=== PATIENT | male | born 1950 | race Hispanic/Latino ===

== ENCOUNTER 2020-02-29 14:51 | Inpatient (IN) | payer MEDICARE ==
[~2020-02-29] VITALS: Ht 167.6 cm; Wt 59.9 kg
[2020-02-29 15:18] LABS: BASOPHILS % 0.3 % (0.0-1.0); EOSINOPHILS # (AUTO) 0.1 (0.0-0.4); EOSINOPHILS % 1.4 % (0.0-6.0); HEMATOCRIT 39.3 % (38.2-49.6); HEMOGLOBIN 12.9 g/dL (14.0-18.0); LYMPHOCYTES # (AUTO) 1.9 (1.0-3.2); LYMPHOCYTES % 29.7 % (18.0-39.1); MEAN CORPUSCULAR HEMOGLOBIN 28.3 pg (28-32); MEAN CORPUSCULAR HGB CONC 32.8 g/dL (31-35); MEAN CORPUSCULAR VOLUME 86.2 fL (81-99); MONOCYTES # (AUTO) 0.6 (0.2-0.8); MONOCYTES % 9.1 % (4.4-11.3); NEUTROPHILS # (AUTO) 3.7 (2.1-6.9); NEUTROPHILS % 58.7 % (38.7-80.0); PLATELET COUNT 191 x10e3/uL (140-360); RED BLOOD COUNT 4.56 x10e6/uL (4.3-5.7); RED CELL DISTRIBUTION WIDTH 13.3 % (11.7-14.4)
[2020-02-29 15:21] LABS: INR 0.94; PROTHROMBIN TIME 13.1 seconds (11.9-14.5)
[2020-02-29 15:22] LABS: PARTIAL THROMBOPLASTIN TIME 28.6 seconds (23.8-35.5)
[2020-02-29] MEDS ORDERED: FENTANYL CITRATE/PF 100MCG/2 ML INJ IV ONE (15:30)
[2020-02-29 15:31] LABS: ALANINE AMINOTRANSFERASE 22 IU/L (0-55); ALBUMIN 3.8 g/dL (3.5-5.0); ALBUMIN/GLOBULIN RATIO 1.2 (0.8-2.0); ALKALINE PHOSPHATASE 103 IU/L (40-150); ANION GAP 11.8 mmol/L (8-16); BLOOD UREA NITROGEN 16 mg/dL (7-26); BUN/CREATININE RATIO 16 (6-25); CALCIUM 8.4 mg/dL (8.4-10.2); CARBON DIOXIDE 22 mmol/L (22-29); CHLORIDE 110 mmol/L (98-107); CREATINE KINASE 220 IU/L (30-200); CREATININE, SERUM 0.98 mg/dL (0.72-1.25); EST GLOMERULAR FILTRATION RATE > 60 ML/MIN (60-); GLUCOSE 124 mg/dL (74-118); POTASSIUM 3.8 mmol/L (3.5-5.1); SODIUM 140 mmol/L (136-145)
--- NOTE | 2020-02-29 15:41 | Diagnostic Imaging Report ---
History: Trauma, fall Comparison studies: None Technique: Axial images were obtained through the cervical region. Coronal and sagittal images reconstructed from the axial data. Dose modulation, iterative reconstruction, and/or weight based adjustment of the mA/kV was utilized to reduce the radiation dose to as low as reasonably achievable. Intravenous contrast: None Findings: Atlantoaxial articulation: Intact. Alignment: Straightened cervical curvature may be positional. No subluxations. Cervicomedullary junction: No abnormalities. The foramen magnum is patent. Soft tissues: No gross acute abnormalities. Mild calcified atherosclerosis present at the right subclavian artery origin, in the carotid bulbs and in the carotid siphons. Vertebrae: No fracture or infection. Nonaggressive-appearing lucent focus in the C2 vertebral body, possibly hemangioma. Degenerative changes: Bridging anterior osteophytes from C2 through C6 indent the prevertebral soft tissues. These findings may reflect changes of diffuse idiopathic skeletal hyperostosis (DISH) spectrum. Mildly degenerated disks from C2 to C7. 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 No significant degenerative canal stenosis. Moderate foraminal stenosis on the left at C5-C6 due to uncovertebral facet arthrosis. Incidental findings: Chronic inflammatory changes in the middle ear mastoid cavities with likely prior tympanomastoidectomies bilaterally. Can correlate with surgical history. IMPRESSION: 1. No cervical spine fracture or subluxation. 2. Degenerative changes as described. 3. Ligament, spinal cord and or vascular abnormalities cannot be excluded on the basis of this examination Signed by: Dr. Geronimo Rubin M.D. on 02/29/2020 3:38 PM
--- NOTE | 2020-02-29 16:01 | Diagnostic Imaging Report ---
Exam: Head CT and orbits CT without contrast History: Trauma, fall Comparison studies: None Technique: Axial images were obtained from the skull base to the vertex and through the orbits. Coronal and sagittal images reconstructed from the axial data. Dose modulation, iterative reconstruction, and/or weight based adjustment of the mA/kV was utilized to reduce the radiation dose to as low as reasonably achievable. Findings: Soft tissues: Left supraorbital soft tissues extends to the superior left preseptal soft tissues. No retained evident foreign body. Bones: No fractures. No destructive lytic or blastic lesions. Nonaggressive to 3 mm sclerotic lesion in the right parietal calvarium and few scattered nonaggressive-appearing lucent foci within the calvarium are nonspecific Brain sulci: Appropriate for age. Ventricles: Normal in size and configuration. No hydrocephalus. Extra-axial spaces: No masses, no fluid collection. Parenchyma: No mass, acute hemorrhage or acute or chronic cortical insults. Sellar/suprasellar region: No abnormalities. Craniocervical junction: Patent foramen magnum. No Chiari one malformation. Included paranasal sinuses: Mild nonspecific mucosal thickening in the bilateral ethmoids as well as mild mucosal thickening or small secretions in the left sphenoid sinus. Middle ear mastoid cavities: Chronic inflammatory changes in the middle ear mastoid cavities with likely prior tympanomastoidectomies bilaterally. Can correlate with surgical history. Incidental findings: Atherosclerotic calcifications in the carotid siphons. Orbits: Soft tissues: Left supraorbital hematoma extends to the left preseptal soft tissues. No retained hyperdense foreign body. Bones: No acute fractures. Chronic left orbital blowout fracture with depressed fractures along the left orbital floor and left lamina papyracea. The right lamina papyracea is also chronically fractured or dehiscent. Chronic nasal bone fractures and nondisplaced left-sided zygomatic arch fracture also present. Globes: Intact. The anterior and posterior chambers are clear. Bilateral intraocular lens replacements are present. Optic nerves: Normal in size and symmetric. Extraocular muscles: Normal in size and symmetric. No extraocular muscle herniation. Intraconal abnormalities: None. Superior ophthalmic veins: Normal in size and symmetric. Cavernous sinuses: Grossly symmetric. Pituitary stalk: At midline. Optic chiasm: Grossly unremarkable. IMPRESSION: Brain and orbits CTs: 1. Left supraorbital/periorbital soft tissue hematoma without underlying fracture. 2. No retained hyperdense foreign body, acute intracranial abnormalities or evidence of globe injury. Signed by: Dr. Geronimo Rubin M.D. on 02/29/2020 3:57 PM
--- NOTE | 2020-02-29 16:06 | Diagnostic Imaging Report ---
CT of the pelvis and left hip History: Fall, pain Comparison: None. Technique: Multidetector CT scanning of the pelvis was performed from the iliac crest through the pubic symphysis. Images were reformatted in coronal and sagittal planes. Additional reformats of the left hip were also obtained in multiple planes. DOSE REDUCTION: The examination was performed according to departmental dose-optimization program which includes automated exposure control, adjustment of the mA and/or kV according to patient size and/or use of iterative reconstruction technique. Discussion: The visualized portions of the large and small bowel are unremarkable. The urinary bladder is within normal limits. There is no evidence of free intraperitoneal air or ascites. There is a minimally displaced fracture of the left inferior pubic ramus which is best appreciated on pelvis CT axial image 41/55. There is a nondisplaced displaced anterior column and medial wall acetabular fracture which is best appreciated on left hip axial reformats images 47 through 72 and sagittal images 56/80 and 60/80 The bilateral proximal femurs are intact. IMPRESSION: 1. Minimally displaced inferior left pubic ramus fracture. 2. Nondisplaced anterior column and medial wall left acetabular fractures. 3. The bilateral proximal femurs are intact. Signed by: Turman Cross MD on 02/29/2020 4:02 PM
[2020-02-29] MEDS ORDERED: MORPHINE SULFATE 2 MG/ML SYR 1ML IV PRN (17:00)
--- OUTSIDE RECORDS SUMMARY | 2020-02-29 17:17 | XMS REPORT ---
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 Allergies, Adverse Reactions, Alerts This patient has no known allergies or adverse reactions. Medications This patient has no known medications. Encounters Start Date/Time End Date/Time Encounter Type Admission Type Attending Clinicians Care Facility Care Department Encounter ID 2017-04-10 14:46:00 2017-04-10 14:46:00 Outpatient [facility] [id number] Results Test Description Test Time Test Comments Text Results Atomic Results Result Comments CT PELVIS WO 2020-02-29 15:46:00 [place] [id number] Patient Name: ASHLEY MACE MR #: [id number] : 1950 Age/Sex: 69/M Req #: [id number] Adm Physician: Ordered by: CHERY VELAZQUEZ MD Report #: [id number] Location: ER Room/Bed: Procedure: [id number] CT/CT PELVIS WO Exam Date: 02/29/20 Exam Time: 1500 REPORT STATUS: Signed CT of the pelvis and left hip History: Fall, pain C omparison: None. Technique: Multidetector CT scanning of the pelvis was performed from the iliac crest through the pubic symphysis. Images were reformatted in coronal and sagittal planes. Additional reformats of the left hip were also obtained in multiple planes. DOSE REDUCTION: The examination was performed according to departmental dose-optimization program which includes automated exposure control, adjustment of the mA and/or kV according to patient size and/or use of iterative reconstruction technique. Discussion: The visualized portions of the large and small bowel are unremarkable. The urinary bladder is within normal limits. There is no evidence of free intraperitoneal air or ascites. There is a minimally displaced fracture of the left inferior pubic ramus which is best appreciated on pelvis CT axial image 41/55. There is a nondisplaced displaced anterior column and medial wall acetabular fracture which is best appreciated on left hip axial reformats images 47 through 72 and sagittal images 56/80 and 60/80 The bilateral proximal femurs are intact. IMPRESSION: 1. Minimally displaced inferior left pubic ramus fracture. 2. Nondisplaced anterior column and medial wall left acetabular fractures. 3. The bilateral proximal femurs are intact. Signed by: Truman Clark MD on 02/29/2020 4:02 PM Dictated By: TRUMAN CLARK MD 160 Transcribed By: DAVID on 02/29/20 160 COPY TO: CHERY VELAZQUEZ MD CT HIP LEFT WO 2020-02-29 15:46:00 [place] [id number] Patient Name: ASHLEY MACE MR #: [id number] : 1950 Age/Sex: 69/M Req #: [id number] Adm Physician: Ordered by: CHERY VELAZQUEZ MD Report #: [id number] Location: ER Room/Bed: Procedure: [id number] CT/CT HIP LEFT WO Exam Date: 02/29/20 Exam Time: 1500 REPORT STATUS: Signed CT of the pelvis and left hip History: Fall, pain C omparison: None. Technique: Multidetector CT scanning of the pelvis was performed from the iliac crest through the pubic symphysis. Images were reformatted in coronal and sagittal planes. Additional reformats of the left hip were also obtained in multiple planes. DOSE REDUCTION: The examination was performed according to departmental dose-optimization program which includes automated exposure control, adjustment of the mA and/or kV according to patient size and/or use of iterative reconstruction technique. Discussion: The visualized portions of the large and small bowel are unremarkable. The urinary bladder is within normal limits. There is no evidence of free intraperitoneal air or ascites. There is a minimally displaced fracture of the left inferior pubic ramus which is best appreciated on pelvis CT axial im age 41/55. There is a nondisplaced displaced anterior column and medial wall acetabular fracture which is best appreciated on left hip axial reformats images 47 through 72 and sagittal images 56/80 and 60/80 The bilateral proximal femurs are intact. IMPRESSION: 1. Minimally displaced inferior left pubic ramus fracture. 2. Nondisplaced anterior column and medial wall left acetabular fractures. 3. The bilateral proximal femurs are intact. Signed by: Truman Clark MD on 02/29/2020 4:02 PM Dictated By: TRUMAN CLARK MD 1602 Transcribed By: DAVID on 02/29/20 1602 COPY TO: CHERY VELAZQUEZ MD CT ORBIT/SELLA/PF WO 2020-02-29 15:39:00 [place] [id number] Patient Name: ASHLEY MACE MR #: [id number] : 1950 Age/Sex: 69/M Req #: [id number] Adm Physician: Ordered by: JADEN TOVAR CLINICAL RECRUITER Report #: [id number] Location: ER Room/Bed: Procedure: [id number] CT/CT ORBIT/SELLA/PF WO Exam Date: 02/29/20 Exam Time: 1500 REPORT STATUS: Signed Exam: Head CT and orbits CT without contrast History: Trauma, fall Comparison studies: None Technique: Axial images were obtained from the skull base to the vertex and through the orbits. Coronal and sagittal images reconstructed from the axial data. Dose modulation, iterative reconstruction, and/or weight based adjustment of the mA/kV was utilized to reduce the radiation dose to as low as reasonably achievable. Findings: Soft tissues: Left supraorbital soft tissues extends to the superior left preseptal soft tissues. No retained evident foreign body. Bones: No fractures. No destructive lytic or blastic lesions. Nonaggressive to 3 mm sclerotic lesion in the right parietal calvarium and few scattered nonaggressive-appearing lucent foci within the calvarium are nonspecific Brain sulci: Appropriate for age. Ventricles: Normal in size and configuration. No hydrocephalus. Extra-axial spaces: No masses, no fluid collection. Parenchyma: No mass, acute hemorrhage or acute or chronic cortical insults. Sellar/suprasellar region: No abnormalities. Craniocervical junction: Patent foramen magnum. No Chiari one malformation. Included paranasal sinuses: Mild nonspecific mucosal thickening in the bilateral ethmoids as well as mild mucosal thickening or small secretions in the left sphenoid sinus. Middle ear mastoid cavities: Chronic inflammatory changes in the middle ear mastoid cavities with likely prior tympanomastoidectomies bilaterally. Can correlate with surgical history. Incidental findings: Atherosclerotic calcifications in the carotid siphons. Orbits: Soft tissues: Left supraorbital hematoma extends to the left preseptal soft tissues. No retained hyperdense foreign body. Bones: No acute fractures. Chronic left orbital blowout fracture with depressed fractures along the left orbital floor and left lamina papyracea. The right lamina papyracea is also chronically fractured or dehiscent. Chronic nasal bone fractures and nondisplaced left-sided zygomatic arch fracture also present. Globes: Intact. The anterior and posterior chambers are clear. Bilateral intraocular lens replacements are present. Optic nerves: Normal in size and symmetric. Extraocular muscles: Normal in size and symmetric. No extraocular muscle herniation. Intraconal abnormalities: None. Superior ophthalmic veins: Normal in size and symmetric. Cavernous sinuses: Grossly symmetric. Pituitary stalk: At midline. Optic chiasm: Grossly unremarkable. IMPRESSION: Brain and orbits CTs: 1. Left supraorbital/periorbital soft tissue hematoma without underlying fracture. 2. No retained hyperdense foreign body, acute intracranial abnormalities or evidence of globe injury. Signed by: Dr. Pb Rubin M.D. on 02/29/2020 3:57 PM Dictated By: PB RUBIN MD 56 Transcribed By: DAVID on 02/29/201556 COPY TO: JADEN TOVAR CLINICAL RECRUITER CT BRAIN WO 2020-02-29 15:39:00 [place] [address] Patient Name: ASHLEY MACE MR #: [id number] : 1950 Age/Sex: 69/M Req #: [id number] Adm Physician: Ordered by: JADEN TOVAR NP Report #: [id number] Location: ER Room/Bed: Procedure: [id number] CT/CT BRAIN WO Exam Date: 02/29/20 Exam Time: 1500 REPORT STATUS: Signed Exam: Head CT and orbits CT without contrast History: Traum a, fall Comparison studies: None Technique: Axial images were obtained from the skull base to the vertex and through the orbits. Coronal and sagittal images reconstructed from the axial data. Dose modulation, iterative reconstruction, and/or weight based adjustment of the mA/kV was utilized to reduce the radiation dose to as low as reasonably achievable. Findings: Soft tissues: Left supraorbital soft tissues extends to the superior left preseptal soft tissues. No retained evident foreign body. Bones: No fractures. No destructive lytic or blastic lesions. Nonaggressive to 3 mm sclerotic lesion in the right parietal calvarium and few scattered nonaggressive-appearing lucent foci within the calvarium are nonspecific Brain sulci: Appropriate for age. Ventricles: Normal in size and configuration. No hydrocephalus. Extra-axial spaces: No masses, no fluid collection. Parenchyma: No mass, acute hemorrhage or acute or chronic cortical insults. Sellar/suprasellar region: No abnormalities. Craniocervical junction: Patent foramen magnum. No Chiari one malformation. Included paranasal sinuses: Mild nonspecific mucosal thickening in the bilateral ethmoids as well as mild mucosal thickening or small secretions in the left sphenoid sinus. Middle ear mastoid cavities: Chronic inflammatory changes in the middle ear mastoid cavities with likely prior tympanomastoidectomies bilaterally. Can correlate with surgical history. Incidental findings: Atherosclerotic calcifications in the carotid siphons. Orbits: Soft tissues: Left supraorbital hematoma extends to the left preseptal soft tissues. No retained hyperdense foreign body. Bones: No acute fractures. Chronic left orbital blowout fracture with depressed fractures along the left orbital floor and left lamina papyracea. The right lamina papyracea is also chronically fractured or dehiscent. Chronic nasal bone fractures and nondisplaced left-sided zygomatic arch fracture also present. Globes: Intact. The anterior and posterior chambers are clear. Bilateral intraocular lens replacements are present. Optic nerves: Normal in size and symmetric. Extraocular muscles: Normal in size and symmetric. No extraocular muscle herniation. Intraconal abnormalities: None. Superior ophthalmic veins: Normal in size and symmetric. Cavernous sinuses: Grossly symmetric. Pituitary stalk: At midline. Optic chiasm: Grossly unremarkable. IMPRESSION: Brain and orbits CTs: 1. Left supraorbital/periorbital soft tissue hematoma without underlying fracture. 2. No retained hyperdense foreign body, acute intracranial abnormalities or evidence of globe injury. Signed by: Dr. Pb Rubin M.D. on 02/29/2020 3:57 PM Dictated By: PB RUBIN MD 56 Transcribed By: DAVID on 02/29/201556 COPY TO: JADEN TOVAR NP CT CERVICAL SPINE WO 2020-02-29 15:26:00 [place] [address] Patient Name: ASHLEY MACE MR #: [id number] : 1950 Age/Sex: 69/M Req #: [id number] Adm Physician: Ordered by: JADEN TOVAR NP Report #: [id number] Location: ER Room/Bed: Procedure: [id number] CT/CT CERVICAL SPINE WO Exam Date: 02/29/20 Exam Time: 1500 REPORT STATUS: Signed History: Trauma, fall Comparison studies: None Technique: Axial images were obtained through the cervical region. Coronal and sagittal images reconstructed from the axial data. Dose modulation, iterative reconstruction, and/or weight based adjustment of the mA/kV was utilized to reduce the radiation dose to as low as reasonably achievable. Intravenous contrast: None Findings: Atlantoaxial articulation: Intact. Alignment: Straightened cervical curvature may be positional. No subluxations. Cervicomedullary junction: No abnormalities. The foramen magnum is patent. Soft tissues: No gross acute abnormalities. Mild calcified atherosclerosis present at the right subclavian artery origin, in the carotid bulbs and in the carotid siphons. Vertebrae: No fracture or infection. Nonaggressive-appearing lucent focus in the C2 vertebral body, possibly hemangioma. Degenerative changes: Bridging anterior osteophytes from C2 through C6 indent the prevertebral soft tissues. These findings may reflect changes of diffuse idiopathic skeletal hyperostosis (DISH) spectrum. Mildly degenerated disks from C2 to C7. 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 No significant degenerative canal stenosis. Moderate foraminal stenosis on the left at C5-C6 due to uncovertebral facet arthrosis. Incidental findings: Chronic inflammatory changes in the middle ear mastoid cavities with likely prior tympanomastoidectomies bilaterally. Can correlate with surgical history. IMPRESSION: 1. No cervical spine fracture or subluxation. 2. Degenerative changes as described. 3. Ligament, spinal cord and or vascular abnormalities cannot be excluded on the basis of this examination Signed by: Dr. Pb Rubin M.D. on 02/29/2020 3:38 PM Dictated By: PB RUBIN MD 1538 Transcribed By: DAVID on 02/29/20 1538 COPY TO: JADEN TOVAR NP
[2020-02-29] MEDS: MORPHINE SULFATE INJ 4 MG/ML INJ 1ML IV PRN (19:35)
[2020-02-29] MEDS: ONDANSETRON HCL INJ 2MG/ML 2ML 2 MG/ML VIAL IV PRN (19:36)
[2020-02-29 19:50] VITALS: BP 140/74
[2020-02-29 20:00] VITALS: BP 140/74
[2020-02-29] MEDS ORDERED: DOCUSATE SODIUM 100 MG CAP PO PRN (22:00)
[2020-02-29] MEDS ORDERED: ZOLPIDEM TARTRATE 5 MG TAB PO PRN (22:00)
[2020-03-01] VITALS (8 sets, daily range): BP systolic 107–129; BP diastolic 58–74
[2020-03-01] MEDS: SODIUM CHLORIDE 0.9% 1000ML 1,000 ML IV SCH ×2 (00:22→00:56)
[2020-03-01 06:11] LABS: BASOPHILS % 0.3 % (0.0-1.0); EOSINOPHILS # (AUTO) 0.2 (0.0-0.4); EOSINOPHILS % 2.5 % (0.0-6.0); HEMATOCRIT 34.5 % (38.2-49.6); HEMOGLOBIN 11.1 g/dL (14.0-18.0); LYMPHOCYTES # (AUTO) 1.1 (1.0-3.2); LYMPHOCYTES % 18.5 % (18.0-39.1); MEAN CORPUSCULAR HGB CONC 32.2 g/dL (31-35); MEAN CORPUSCULAR VOLUME 86.9 fL (81-99); MONOCYTES # (AUTO) 0.7 (0.2-0.8); MONOCYTES % 10.9 % (4.4-11.3); NEUTROPHILS # (AUTO) 4.1 (2.1-6.9); NEUTROPHILS % 67.3 % (38.7-80.0); PLATELET COUNT 141 x10e3/uL (140-360); RED BLOOD COUNT 3.97 x10e6/uL (4.3-5.7); RED CELL DISTRIBUTION WIDTH 13.7 % (11.7-14.4)
[2020-03-01 06:47] LABS: CREATINE KINASE MB 1.5 ng/mL (0-5.0)
[2020-03-01 07:10] LABS: ALANINE AMINOTRANSFERASE 18 IU/L (0-55); ALBUMIN 3.2 g/dL (3.5-5.0); ALKALINE PHOSPHATASE 80 IU/L (40-150); ANION GAP 10.8 mmol/L (8-16); BLOOD UREA NITROGEN 16 mg/dL (7-26); BUN/CREATININE RATIO 18 (6-25); CARBON DIOXIDE 27 mmol/L (22-29); CHLORIDE 107 mmol/L (98-107); CREATININE, SERUM 0.89 mg/dL (0.72-1.25); EST GLOMERULAR FILTRATION RATE > 60 ML/MIN (60-); GLUCOSE 110 mg/dL (74-118); POTASSIUM 3.8 mmol/L (3.5-5.1); SODIUM 141 mmol/L (136-145)
[2020-03-01] MEDS: ACETAMINOPHEN 325 MG TAB PO PRN (11:45)
[2020-03-01 14:32] LABS: CREATINE KINASE MB 1.7 ng/mL (0-5.0)
[2020-03-01] MEDS: ONDANSETRON HCL INJ 2MG/ML 2ML 2 MG/ML VIAL IV PRN (15:34)
[2020-03-01] MEDS: MORPHINE SULFATE INJ 4 MG/ML INJ 1ML IV PRN ×2 (15:35→20:07)
[2020-03-02] VITALS (8 sets, daily range): BP systolic 103–123; BP diastolic 57–64
[2020-03-02] MEDS: MORPHINE SULFATE INJ 4 MG/ML INJ 1ML IV PRN ×2 (02:02→11:41)
[2020-03-02] MEDS: ACETAMINOPHEN 325 MG TAB PO PRN (08:04)
[2020-03-02] MEDS: ONDANSETRON HCL INJ 2MG/ML 2ML 2 MG/ML VIAL IV PRN (11:53)
[2020-03-03] VITALS: BP 109/58
[2020-03-03 04:00] VITALS: BP 107/61
[2020-03-03 08:05] VITALS: BP 115/58
[2020-03-03 08:51] VITALS: BP 115/58
[2020-03-03 12:41] VITALS: BP 121/69
[2020-03-03 16:34] VITALS: BP 133/63
== END 2020-03-03 17:07 | DRG 535 ==
LOC: ER 14:51 → ERHOLD 16:56 → MED/SURG 18:31
PROVIDERS: ADMIT Internal Medicine; ATTEND Internal Medicine
DX: S32.592A Other specified fracture of left pubis, initial encounter for closed fracture (principal); S32.435A Nondisplaced fracture of anterior column [iliopubic] of left acetabulum, initial encounter for closed fracture; S32.475A Nondisplaced fracture of medial wall of left acetabulum, initial encounter for closed fracture; Y92.019 Unspecified place in single-family (private) house as the place of occurrence of the external cause; Z90.49 Acquired absence of other specified parts of digestive tract; S05.12XA Contusion of eyeball and orbital tissues, left eye, initial encounter; W01.10XA Fall on same level from slipping, tripping and stumbling with subsequent striking against unspecified object, initial encounter
CPT/HCPCS: 36415; 70450; 70480; 72125; 72192; 80053; 82550; 82553; 84484; 85025; 85610; 85730; 93005; 97139; 99251; 99284; J2270; J2405; J3010; J7030